=== PATIENT | male | born 1945 | race Caucasian/White ===

== ENCOUNTER 2020-09-14 08:36 | Outpatient (REF) | payer MEDICARE, SELFPAY ==
--- NOTE | 2020-09-14 08:42 | XR_ITS ---
EXAMINATION: XR KNEE, BILATERAL XR KNEE, LEFT CLINICAL INFORMATION: Left knee pain. COMPARISON: 12/29/2019, 09/15/2019, and 07/15/2019. TECHNIQUE: AP standing views of both knees and left lateral knee. FINDINGS: Patient is status post bilateral total knee arthroplasties. On the provided images prosthetic components appear in good position. No acute fracture or dislocation is evident. No evidence of prosthetic hardware loosening. There is a left knee effusion. There are prominent vascular calcifications seen. XR/XR knee LT 2V IMPRESSION: Status post bilateral total knee arthroplasties. Prosthetic components in position. Left knee effusion.
--- NOTE | 2020-09-14 08:42 | XR_ITS ---
EXAMINATION: XR KNEE, BILATERAL XR KNEE, LEFT CLINICAL INFORMATION: Left knee pain. COMPARISON: 12/29/2019, 09/15/2019, and 07/15/2019. TECHNIQUE: AP standing views of both knees and left lateral knee. FINDINGS: Patient is status post bilateral total knee arthroplasties. On the provided images prosthetic components appear in good position. No acute fracture or dislocation is evident. No evidence of prosthetic hardware loosening. There is a left knee effusion. There are prominent vascular calcifications seen. XR/XR knee standing BI IMPRESSION: Status post bilateral total knee arthroplasties. Prosthetic components in position. Left knee effusion.
== END 2020-09-14 08:37 | disposition home or self-care (01) ==
LOC: HO.HOSX 08:36
PROVIDERS: PCP Internal Medicine; Referring Provider Internal Medicine; Visit Provider Orthopaedic Surgery
DX: M25.562 Pain in left knee (principal); M25.561 Pain in right knee; Z96.653 Presence of artificial knee joint, bilateral
CPT/HCPCS: 73560; 73565; 99212

== ENCOUNTER 2021-09-12 07:10 | Outpatient (REF) | payer MEDICARE, SELFPAY ==
--- NOTE | ~2021-09-12 | XR_ITS ---
EXAMINATION: XR KNEE, AP STANDING VIEWS, BILATERAL XR KNEE, LATERAL AND SUNRISE VIEWS, LEFT CLINICAL INFORMATION: Pain. COMPARISON: 09/14/2020 TECHNIQUE: AP standing view of both knees. Lateral and sunrise views of the left knee. FINDINGS: AP standing views of both knees demonstrate the patient to be status post bilateral knee arthroplasty. The femoral and tibial components appear in good position. No evidence of prosthetic component loosening seen. [address] [place] and lateral views of the left knee do not demonstrate evidence of acute fracture or dislocation. No significant effusion is appreciated. Vascular calcifications present. XR/XR knee standing BI IMPRESSION: Status post bilateral total knee arthroplasties without significant abnormality appreciated.
--- NOTE | ~2021-09-12 | XR_ITS ---
EXAMINATION: XR KNEE, AP STANDING VIEWS, BILATERAL XR KNEE, LATERAL AND SUNRISE VIEWS, LEFT CLINICAL INFORMATION: Pain. COMPARISON: 09/14/2020 TECHNIQUE: AP standing view of both knees. Lateral and sunrise views of the left knee. FINDINGS: AP standing views of both knees demonstrate the patient to be status post bilateral knee arthroplasty. The femoral and tibial components appear in good position. No evidence of prosthetic component loosening seen. [place] and lateral views of the left knee do not demonstrate evidence of acute fracture or dislocation. No significant effusion is appreciated. Vascular calcifications present. XR/XR knee LT 3V IMPRESSION: Status post bilateral total knee arthroplasties without significant abnormality appreciated.
== END 2021-09-12 07:11 | disposition home or self-care (01) ==
LOC: HO.HOSX 07:10
PROVIDERS: Visit Provider Physician Assistant
DX: M25.662 Stiffness of left knee, not elsewhere classified (principal); Z96.653 Presence of artificial knee joint, bilateral
CPT/HCPCS: 73562; 73565; 99212

== ENCOUNTER → 2021-09-14 12:27 | Outpatient (BNVA) | payer MEDICARE, SELFPAY | PROVIDERS: PCP Internal Medicine; Visit Provider Orthopaedic Surgery | DX: T84.023A Instability of internal left knee prosthesis, initial encounter (principal) | CPT/HCPCS: 99212 ==

== ENCOUNTER → 2021-10-17 12:29 | Outpatient (BNVA) | payer MEDICARE, SELFPAY | PROVIDERS: PCP Internal Medicine; Visit Provider Orthopaedic Surgery | DX: M65.4 Radial styloid tenosynovitis [de Quervain] (principal) | CPT/HCPCS: 99202; J1100 ==

== ENCOUNTER → 2021-12-12 08:52 | Outpatient (BNVA) | payer MEDICARE, SELFPAY | PROVIDERS: PCP Internal Medicine; Visit Provider Orthopaedic Surgery | DX: M65.4 Radial styloid tenosynovitis [de Quervain] (principal) | CPT/HCPCS: 99212; J1100 ==

== ENCOUNTER → 2022-01-16 10:24 | Outpatient (BNVA) | payer MEDICARE, SELFPAY | PROVIDERS: PCP Internal Medicine; Visit Provider Orthopaedic Surgery | DX: M25.532 Pain in left wrist (principal); M65.4 Radial styloid tenosynovitis [de Quervain]; Z88.6 Allergy status to analgesic agent; Z88.8 Allergy status to other drugs, medicaments and biological substances; Z88.9 Allergy status to unspecified drugs, medicaments and biological substances; Z96.653 Presence of artificial knee joint, bilateral | CPT/HCPCS: 99212 ==

== ENCOUNTER 2022-02-08 06:16 | Day surgery (SDC) | payer MEDICARE, SELFPAY ==
[2022-02-08 06:45] VITALS: BMI 38.0
[2022-02-08 07:00] VITALS: BP 156/69; PULSE 66; RESP 17; TEMP 36.3; O2SAT 96
[2022-02-08 07:24] VITALS: BMI 38.0
--- NOTE | 2022-02-08 08:01 | P.OP_ITS ---
Operative Note Operative Note Date of Service: 02/08/22 Narrative: Operative Note Preop diagnosis: 1. Left DeQuervain's tenosynovitis Postop diagnosis: 1. Left DeQuervain's tenosynovitis Procedure: 1. Left 1st dorsal compartment release Surgeon: Carol Perdomo MD Anesthesia: local block using 1% lidocaine with epinephrine Findings: Thickened 1st dorsal compartment. EBL: Less than 5 mL Tourniquet time: None Specimens: None Complications: None Disposition: Brought to recovery room in stable condition Plan: Follow-up for 7-10 days for wound check and suture removal Indications: The patient is a 76 years old, with left DeQuervain's tenosynovitis that has been unresponsive to nonoperative management. The risks and benefits of operative treatment including but not limited to risk of damage to blood vessels, nerves, tendons, infection, persistent pain, persistent symptoms, recurrence or possible need for additional surgery were discussed with the patient and the patient wishes to proceed with surgery. Procedure: Once consent was obtained a local block was performed in the preop area using a combination of 1% lidocaine with epinephrine. The patient was then brought back to the operating suite and placed on the operative table in supine position. A tourniquet was applied to the proximal aspect of the left upper extremity and the limb was prepped and draped in a standard surgical fashion. Once assured that we had a good block, a 1.5 cm longitudinal incision was made centered over the 1st dorsal compartment as it passed over the radial styloid of the left wrist. The incision was made through the skin to the subcutaneous tissues using a #15 blade. Careful dissection was made down to the level of the 1st dorsal compartment using tenotomy scissors, with care being taken to protect the nearby branches of the superficial radial nerve. Once the 1st dorsal compartment was exposed, A longitudinal incision was made in the 1st dorsal compartment 1st using a #15 blade, then using tenotomy scissors under direct visualization. The 1st dorsal compartment was noted to be thickened. Following our release, we saw smooth gliding abductor pollicis longus and extensor pollicis brevis tendons. Once satisfied with our 1st dorsal compartment release the wound was copiously irrigated with normal saline and hemostasis was obtained with a brief period of local pressure. The subcutaneous layer was closed with some 4-0 Vicryl suture, and the skin edges were reapproximated with some 5.0 nylon suture material. A sterile dressing was applied. The patient appears to have tolerated the procedure well and with no complica tions. All digits were well vascularized at the conclusion of the case.
--- NOTE | 2022-02-08 08:01 | MHC.SHP ---
Pre-Procedural Eval Section A Date of Service: 02/08/22 The patient is an INPATIENT: No Changes since office visit: No Cold of Flu in the past 2 weeks, No New Medical Problems, No Changes in Medication and No Patient answered all questions The History & Physical has been completed within 30 days and I have reviewed it.: Yes Section B Chief Complaint: tenosynovitis Allergies: Allergies Allergy/AdvReac Type Severity Reaction Status Date / Time prednisone [PREDNISONE] Allergy Severe FACIAL Verified 01/16/22 10:36 SWELLING/FLUSHING adhesive tape Allergy Intermediate RASH Verified 01/16/22 10:36 acetaminophen [Percocet] Allergy Unknown Vomiting Verified 01/16/22 10:36 oxycodone [OXYCODONE] AdvReac Intermediate ITCHING Verified 01/16/22 10:36 percocet Allergy Unknown rash Uncoded 01/16/22 10:36 prednisone Allergy Unknown rash Uncoded 01/16/22 10:36 Plan I have reviewed the history and physical and performed a pertinent physical examination on my patient. No changes have occurred unless specified.
[2022-02-08 08:35] VITALS: BP 180/75; PULSE 58; RESP 17; TEMP 36.2; O2SAT 96
== END 2022-02-08 08:43 | disposition home or self-care (01) ==
PROVIDERS: PCP Internal Medicine; Visit Provider Orthopaedic Surgery
PROC: (CPT 25000; principal; 2022-02-08 07:30)
DX: M65.4 Radial styloid tenosynovitis [de Quervain] (principal); M25.532 Pain in left wrist; Z96.653 Presence of artificial knee joint, bilateral; Z98.890 Other specified postprocedural states; Z88.8 Allergy status to other drugs, medicaments and biological substances
CPT/HCPCS: 25000; J0171

== ENCOUNTER → 2022-02-21 13:08 | Outpatient (BNVA) | payer MEDICARE, SELFPAY | PROVIDERS: PCP Internal Medicine; Visit Provider Orthopaedic Surgery | DX: Z09 Encounter for follow-up examination after completed treatment for conditions other than malignant neoplasm (principal); Z87.39 Personal history of other diseases of the musculoskeletal system and connective tissue | CPT/HCPCS: 99212 ==

== ENCOUNTER 2022-09-17 06:06 | Outpatient (REF) | payer MEDICARE, SELFPAY ==
--- NOTE | ~2022-09-17 | XR_ITS ---
EXAMINATION: XR KNEES, STANDING AP XR KNEE, LEFT CLINICAL INFORMATION: Knee pain. COMPARISON: Standing AP knees and left knee radiographs 09/12/2021. TECHNIQUE: Standing AP view of both knees is performed. The left knee is also imaged in lateral and axial patella views. FINDINGS: Right: Prior knee arthroplasty. Hardware intact. No destructive process or osteolysis. No periostitis. There is some minor heterotopic bone again seen medial and lateral sides similar to prior exam. Left: Prior total knee arthroplasty. Hardware intact. No destructive process or osteolysis. No periostitis. Some minor heterotopic bone again noted similar to prior exam. Axial view patella shows no lateralization or tilting. No definite suprapatellar effusion. XR/XR knee LT 2V IMPRESSION: Right: -Prior knee arthroplasty. Hardware intact. No destructive process or osteolysis. Left: -Prior knee arthroplasty. Hardware intact. No destructive process or osteolysis. -No lateralization or tilting patella. -No definite effusion.
--- NOTE | ~2022-09-17 | XR_ITS ---
EXAMINATION: XR KNEES, STANDING AP XR KNEE, LEFT CLINICAL INFORMATION: Knee pain. COMPARISON: Standing AP knees and left knee radiographs 09/12/2021. TECHNIQUE: Standing AP view of both knees is performed. The left knee is also imaged in lateral and axial patella views. FINDINGS: Right: Prior knee arthroplasty. Hardware intact. No destructive process or osteolysis. No periostitis. There is some minor heterotopic bone again seen medial and lateral sides similar to prior exam. Left: Prior total knee arthroplasty. Hardware intact. No destructive process or osteolysis. No periostitis. Some minor heterotopic bone again noted similar to prior exam. Axial view patella shows no lateralization or tilting. No definite suprapatellar effusion. XR/XR knee standing BI IMPRESSION: Right: -Prior knee arthroplasty. Hardware intact. No destructive process or osteolysis. Left: -Prior knee arthroplasty. Hardware intact. No destructive process or osteolysis. -No lateralization or tilting patella. -No definite effusion.
== END 2022-09-17 06:07 | disposition home or self-care (01) ==
LOC: HO.HOSX 06:06
PROVIDERS: Visit Provider Physician Assistant
DX: M25.562 Pain in left knee (principal); M25.561 Pain in right knee; M25.661 Stiffness of right knee, not elsewhere classified; M25.662 Stiffness of left knee, not elsewhere classified; Z96.653 Presence of artificial knee joint, bilateral
CPT/HCPCS: 73560; 73565; 99212

== ENCOUNTER 2023-07-12 09:11 | Outpatient (AMB) | payer MEDICARE, SELFPAY ==
--- NOTE | 2023-07-12 09:31 | A.OFFVIS_ITS ---
Intake Vital Signs 07/12/23 09:37 Height 5 ft 10 in Weight 265 lb BMI 38.0 Intake Visit Reasons: Newprob-Left hip pain Intake Note: Austyn is a 77 year old male who presents today for a evaluation for his left hip pain. Patient reports off and on pain for a months. He states his pain is near his glutes and it radiates up to his lower back. Patient reports when he put his socks on he felt a spider web of pain in his lower back. Allergies prednisone [PREDNISONE] Allergy (Severe, Verified 07/12/23 09:36) FACIAL SWELLING/FLUSHING adhesive tape Allergy (Intermediate, Verified 07/12/23 09:36) RASH acetaminophen [Percocet] Allergy (Unknown, Verified 07/12/23 09:36) Vomiting oxycodone [OXYCODONE] Adverse Reaction (Intermediate, Verified 07/12/23 09:36) ITCHING percocet Allergy (Unknown, Uncoded 02/21/22 13:49) rash prednisone Allergy (Unknown, Uncoded 02/21/22 13:49) rash HPI Newprob-Left hip pain HPI Details 77-year-old male who presents in the office today for an evaluation of left hip pain. The patient reports intermittent pain for a month, since 06/2023. He states his pain is near his glutes and radiates up to the lower back. Patient reports when he was putting his socks on he felt a spiderweb of pain in his lower back. [facility] Surgical History S/p total knee replacement, bilateral Status post carpal tunnel release of both wrists (~2017) Family History Mother No problems noted. Father No problems noted. Social History Patient Tobacco Use Status: Former Tobacco user Current occupational status: retired Current occupation: Right Handed Review of Systems Const All systems reviewed & are unremarkable except as noted in HPI and below Physical Exam Vital Signs: BMI result Body Mass Index 38.0 Const General: cooperative, healthy appearing and no acute distress Resp Effort & Inspection: normal respiratory effort and able to speak in complete sentences Cardio Rate: regular rate Peripheral pulses: Peripheral pulses 2+ throughout GI Palpation (GI): Soft to palpation Skin Lesions: no lesions Rashes: no rashes Extrem Other: Left hip: Normal to inspection. No ecchymosis, erythema, or edema. Full hip ROM in all planes. No tenderness to palpation over the greater trochanteric bursa. 5/5 strength with resisted hip flexion, knee extension, abduction, and abduction. Pain with straight leg raise that radiates from lower back down to his left knee. NVI. Assessment & Plan Assessment & Plan (1) Sciatica of left side: Code(s): M54.32 - Sciatica, left side Plan Mr. Vasquez is a 77-year-old male who presents in the office today for an evaluation of left hip pain. The patient reports intermittent pain for a month, since 06/2023. He states his pain is near his glutes and radiates up to the lower back. Patient reports when he was putting his socks on he felt a spiderweb of pain in his lower back. The patient will be referred to Pain Management for further evaluation and treatment of his lower back pain. Follow up will be PRN, or sooner if needed. X-rays of the left hip which were obtained while in the office today and were reviewed by me, Nallely Lyles PA-C, revealed no evidence of acute fracture or dislocation. Orders: Orders XR hip LT w PEL1V Today M25.559 - Pain in unspecified hip Referrals Pain Management Referral M54.32 - Sciatica, left side Patient Instructions: Scribed for Nallely Lyles PA-C by Mariely Freedman certified medical technician assistant, on 07/12/2023 at 9:19 am, EST. Coding Level of Care Code New Pt Level 4 (24831) Diagnoses Sciatica of left side M54.32
[2023-07-12 09:37] VITALS: BMI 38.0
== END 2023-07-12 10:15 | disposition home or self-care (01) ==
PROVIDERS: PCP Internal Medicine; Visit Provider Physician Assistant
DX: M54.32 Sciatica, left side (principal)
CPT/HCPCS: 99213

== ENCOUNTER 2023-07-12 13:16 | Outpatient (REF) | payer MEDICARE, SELFPAY ==
--- NOTE | ~2023-07-12 | XR_ITS ---
EXAMINATION: XR HIP, LEFT CLINICAL INFORMATION: Pain. COMPARISON: None available. TECHNIQUE: AP and frog-leg lateral views of the left hip are submitted, together with a frontal view of the pelvis. FINDINGS: No fracture. Alignment is anatomic. There is mild heel narrowing of the right acetabular joint space. The left acetabular joint space is well-maintained. The femoral heads are smooth. No acute fracture or dislocation is seen. There are iliofemoral atherosclerotic calcifications. No foreign body is noted. XR/XR hip LT w PEL1V IMPRESSION: There is mild osteoarthritic change of the right hip, and no unusual degenerative change is seen of the left hip. No fracture or dislocation is seen.
== END 2023-07-12 13:17 | disposition home or self-care (01) ==
LOC: HO.HOSX 13:16
PROVIDERS: Visit Provider Physician Assistant
DX: M54.32 Sciatica, left side (principal)
CPT/HCPCS: 73502

== ENCOUNTER 2023-07-25 10:38 | Outpatient (REF) | payer MEDICARE, SELFPAY ==
--- NOTE | ~2023-07-25 | XR_ITS ---
EXAMINATION: XR LUMBOSACRAL SPINE WITH OBLIQUES CLINICAL INFORMATION: Spondylosis without myelopathy or radiculopathy COMPARISON: None available. TECHNIQUE: 7 views of the lumbar spine as above bilateral oblique views as well as flexion and extension views. FINDINGS: Slight rightward curvature of the lumbar spine. Extensive degenerative changes with hypertrophic change in the imaged lower thoracic spine. Extensive atherosclerotic aortoiliac calcifications. AP diameter of distal abdominal aorta of approximately 2.6 cm. Facet arthritis in the mid to lower lumbar spine. Advanced multilevel degenerative changes in the lumbar spine with abundant hypertrophic change and multilevel loss of disc space height. Grade 1 anterolisthesis of L5 on S1 persists on flexion and extension views. Degenerative changes in the bilateral sacroiliac joints. XR/XR lumbar spine 6V w bending IMPRESSION: Severe multilevel degenerative changes in the lumbar spine. AP diameter of distal abdominal aorta of approximately 2.6 cm. Dedicated imaging of the abdominal aorta recommend a for further evaluation.
== END 2023-07-25 10:39 | disposition home or self-care (01) ==
LOC: HO.XRAY 10:38
PROVIDERS: PCP Internal Medicine; Visit Provider Nurse Practitioner Family
DX: M47.817 Spondylosis without myelopathy or radiculopathy, lumbosacral region (principal); M54.50 Low back pain, unspecified; M25.552 Pain in left hip
CPT/HCPCS: 72114

== ENCOUNTER 2023-07-25 10:38 | Outpatient (AMB) | payer MEDICARE, SELFPAY ==
--- NOTE | 2023-07-25 10:42 | MHC.OFFVIS ---
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 Accompanied by: Self / Same As Patient Allergies prednisone [PREDNISONE] Allergy (Severe, Verified 07/25/23 10:45) FACIAL SWELLING/FLUSHING adhesive tape Allergy (Intermediate, Verified 07/25/23 10:45) RASH acetaminophen [Percocet] Allergy (Unknown, Verified 07/25/23 10:45) Vomiting oxycodone [OXYCODONE] Adverse Reaction (Intermediate, Verified 07/25/23 10:45) ITCHING percocet Allergy (Unknown, Uncoded 02/21/22 13:49) rash prednisone Allergy (Unknown, Uncoded 02/21/22 13:49) rash HPI Sciatica, left side HPI Details Patient is a pleasant 77 years old male presents today for initial evaluation of chronic low back pain. Denies any recent trauma, injury or falls. Patient reports axial low back pain and left hip pain wtih prolonged walking. Reports pain increases within 10 minutes of walking but no pain while sitting or standing. Patient is being seen by [facility] [place] for left hip pain. Denies previous spine surgery or injections and is not interested in interventional treatments at this time. Patient denies previous physical therapy for back and core strengthening. He reports taking Aspirin and resting to alleviate his symptoms. Pain affects his daily activities, functioning, sleep, social activities, mood and quality of life. Patient denies previous physical therapy, chiropractic manipulation, massage, aqua therapy, acupuncture, TENS unit or home exercise program. Denies any fever, abdominal or groin pain, dizziness, shortness of breath, bladder or bowel incontinence or saddle anesthesia. Patient rates his pain at 4/10 with walking and 0/10 while sitting 0/10. 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 Father No problems noted. Social History Patient Tobacco Use Status: Former Tobacco user Current occupational status: retired Current occupation: Right Handed Review of Systems Const All systems reviewed & are unremarkable except as noted in HPI and below Physical Exam Vital Signs: Last Vital Signs Pulse 69 07/25/23 10:46 BP 171/72 H 07/25/23 10:46 Pulse Ox 96 07/25/23 10:46 Oxygen Delivery Method Room Air 07/25/23 10:46 BMI result Body Mass Index 38.1 General: Appears afebrile. Alert and oriented. Mood and affect appropriate. Follows and participates in conversation appropriately. Respiratory effort is unlabored. No cough. Able to transition from sit to stand unassisted. Ambulates with bilaterally normal heel strike and toe off. Back/Spine/Pelvis Other: Patient is able to walk and stand on heels and tip toes with mild difficulty on the left, otherwise demonstrating good motor tone. No limping. Can flex forward to 70-75 degrees and extend to 5-10 degrees before experiencing lumbar pain. Demonstrates 5/5 strength of quadriceps bilaterally as well as flexion/dorsiflexion of bilateral feet against resistance. 2+ pedal pulses bilaterally. Seated straight leg rise with dorsiflexion negative bilaterally. +1 patellar and achilles reflexes bilaterally. Facet loading test positive bilaterally. Miguel sign, Alvarado?s, Pelvic compression and Stinchfield tests are negative bilaterally. No groin pain with I/E hip rotations. Cervical Spine: cervical ROM normal and No Cervical spine tenderness Thoracic/Lumbar Spine: thoracic and lumbar spine normal to inspection, No Thoracic/lumbar spine scar(s), Lasegue's sign negative, straight leg raise negative bilaterally, paraspinal muscle tenderness on the left greater than right, No thoracic spinal tenderness and lumbar spinal tenderness at L4 and at L5 Pelvis: no buttock tenderness and no sciatic notch tenderness Sacroiliac joints: bilaterally nontender Results Reviewed Results Reviewed: XR HIP, LEFT 07/12/23 FINDINGS: No fracture. Alignment is anatomic. There is mild heel narrowing of the right acetabular joint space. The left acetabular joint space is well-maintained. The femoral heads are smooth. No acute fracture or dislocation is seen. There are iliofemoral atherosclerotic calcifications. No foreign body is noted. IMPRESSION: There is mild osteoarthritic change of the right hip, and no unusual degenerative change is seen of the left hip. No fracture or dislocation is seen. Assessment & Plan Assessment & Plan (1) Lumbosacral spondylosis: Code(s): M47.817 - Spondylosis without myelopathy or radiculopathy, lumbosacral region (2) Low back pain: Code(s): M54.50 - Low back pain, unspecified (3) Left hip pain: Code(s): M25.552 - Pain in left hip Plan 1. Lumbar spine imaging to assess degree of degenerative changes, any subluxation, listhesis or pars defects. 2. Recommend formal physical therapy for chronic mid to low back pain with focus on lumbar stabilization, modalities, stretching, strengthening and progressing to a home program. Script provided today. Follow-up in 2-3 months to see response to physical therapy, if no response to physical therapy will consider further interventional strategy. All questions and concerns have been answered and patient agreed with the plan. Follow up for xray results and sooner as needed. Orders: Orders XR lumbar spine 6V w bending 07/25/23 M47.817 - Spondylosis without myelopathy or radiculopathy, lumbosacral region, M54.50 - Low back pain, unspecified PT Evaluation and Treatment 07/25/23 M47.817 - Spondylosis without myelopathy or radiculopathy, lumbosacral region, M54.50 - Low back pain, unspecified Coding Level of Care Code New Pt Level 4 (65963) Diagnoses Lumbosacral spondylosis M47.817 Low back pain M54.50 Left hip pain M25.552
[2023-07-25 10:46] VITALS: BP 171/72; PULSE 69; O2SAT 96; BMI 38.1
== END 2023-07-25 11:08 | disposition home or self-care (01) ==
PROVIDERS: PCP Internal Medicine; Visit Provider Nurse Practitioner Family
DX: M47.817 Spondylosis without myelopathy or radiculopathy, lumbosacral region (principal); M54.50 Low back pain, unspecified; M25.552 Pain in left hip
CPT/HCPCS: 99203

== ENCOUNTER 2023-08-15 08:12 | Outpatient (AMB) | payer MEDICARE, SELFPAY ==
--- NOTE | 2023-08-15 08:25 | A.OFFVIS_ITS ---
Intake Vital Signs 08/15/23 08:30 Height 5 ft 10 in Weight 265 lb BMI 38.0 BP 143/66 H Blood Pressure Location Rt brachial Position Sitting Pulse 66 Pulse Source Pulse Oximeter Pulse Oximetry (%) 98 Oxygen Delivery Method Room Air Intake Visit Reasons: xray results/ LVM. Allergies prednisone [PREDNISONE] Allergy (Severe, Verified 08/15/23 08:31) FACIAL SWELLING/FLUSHING adhesive tape Allergy (Intermediate, Verified 08/15/23 08:31) RASH acetaminophen [Percocet] Allergy (Unknown, Verified 08/15/23 08:31) Vomiting oxycodone [OXYCODONE] Adverse Reaction (Intermediate, Verified 08/15/23 08:31) ITCHING percocet Allergy (Unknown, Uncoded 02/21/22 13:49) rash prednisone Allergy (Unknown, Uncoded 02/21/22 13:49) rash HPI HPI Comments History of Present Illness Details Patient presents today to review recent lumbar spine xray results. Denies any recent cough, cold, infection, fever or other significant changes in medical history since last office visit. Patient continues to endorse low back pain across his lower back worsening with walking, prolonged standing while doing dishes or cooking his meals or bending. Denies any pain while sitting therefore rates his pain 0/10 now. Patient reports his pain completely goes away as soon as he sits down. Patient also reports to temporary relieve his back pain after walking he has to lean forward. He is interested to undergo therapeutic back injections for his spinal stenosis related pain as past back injections were effective for his symptoms. Lumbar spine xray results are noted below and significant for Grade 1 anterolisthesis of L5 on S1 persists on flexion and extension, severe multilevel degenerative changes in the lumbar spine, and degenerative changes in the bilateral sacroiliac joints. Lumbar spine xray also showed AP diameter of distal abdominal aorta of approximately 2.6 cm. A copy of xray results was faxed to PCP office today to further evaluate regarding abdominal aorta. Patient also continues to reports significant morning stiffness and pain in his both knees with history of bilateral TKAs and difficulty bending his knees. He reports daily swimming Saturday through Saturday and notes significant left leg discomfort when coming out from swimming pool. PRIOR: Patient is a pleasant 77 years old male presents today for initial evaluation of chronic low back pain. Denies any recent trauma, injury or falls. Patient reports axial low back pain and left hip pain wtih prolonged walking. Reports pain increases within 10 minutes of walking but no pain while sitting or standing. Patient is being seen by [facility] for left hip pain. Denies previous spine surgery or injections and is not interested in interventional treatments at this time. Patient denies previous physical therapy for back and core strengthening. He reports taking Aspirin and resting to alleviate his symptoms. Pain affects his daily activities, functioning, sleep, social activities, mood and quality of life. Patient denies previous physical therapy, chiropractic manipulation, massage, aqua therapy, acupuncture, TENS unit or home exercise program. Denies any fever, abdominal or groin pain, dizziness, shortness of breath, bladder or bowel incontinence or saddle anesthesia. Patient rates his pain at 4/10 with walking and 0/10 while sitting 0/10. 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 Father No problems noted. Social History Patient Tobacco Use Status: Former Tobacco user Current occupational status: retired Current occupation: Right Handed Review of Systems Const All systems reviewed & are unremarkable except as noted in HPI and below Physical Exam Vital Signs: Last Vital Signs Pulse 66 08/15/23 08:30 BP 143/66 H 08/15/23 08:30 Pulse Ox 98 08/15/23 08:30 Oxygen Delivery Method Room Air 10/05/23 08:30 BMI result Body Mass Index 38.0 General: Appears afebrile. Alert and oriented. Mood and affect appropriate. Follows and participates in conversation appropriately. Respiratory effort is unlabored. No cough. Able to transition from sit to stand unassisted. Ambulates with bilaterally normal heel strike and toe off but feels unsteady on the left. Back/Spine/Pelvis Other: Lumbar extension reproduces mild pain and moderate pain with lumbar flexion. Mildly antalgic gait with mild limping, favoring right side. Can flex forward to 70-75 degrees and extend to 5-10 degrees before experiencing lumbar pain. Demonstrates 5/5 strength of quadriceps bilaterally as well as flexion/dorsiflexion of bilateral feet against resistance. 2+ pedal pulses bila terally. Seated straight leg rise with dorsiflexion positive on the left. +1 patellar and achilles reflexes bilaterally. Facet loading test positive bilaterally. Miguel sign +, limited Alvarado?s and Stinchfield tests reproduce left lateral hip and bilateral low back pain. No groin pain with I/E hip rotations. Valsalva maneuver is negative. Cervical Spine: cervical ROM normal and No Cervical spine tenderness Thoracic/Lumbar Spine: thoracic and lumbar spine normal to inspection, No Thoracic/lumbar spine scar(s), paraspinal muscle tenderness on the left greater than right, No thoracic spinal tenderness and lumbar spinal tenderness at L4 and at L5 Pelvis: no buttock tenderness Sacroiliac joints: bilaterally tender to palpation Results Reviewed Results Reviewed: XR HIP, LEFT 07/12/23 FINDINGS: No fracture. Alignment is anatomic. There is mild heel narrowing of the right acetabular joint space. The left acetabular joint space is well-maintained. The femoral heads are smooth. No acute fracture or dislocation is seen. There are iliofemoral atherosclerotic calcifications. No foreign body is noted. IMPRESSION: There is mild osteoarthritic change of the right hip, and no unusual degenerative change is seen of the left hip. No fracture or dislocation is seen. XR LUMBOSACRAL SPINE WITH OBLIQUES 07/25/23 CLINICAL INFORMATION: Spondylosis without myelopathy or radiculopathy COMPARISON: None available. FINDINGS: Slight rightward curvature of the lumbar spine. Extensive degenerative changes with hypertrophic change in the imaged lower thoracic spine. Extensive atherosclerotic aortoiliac calcifications. AP diameter of distal abdominal aorta of approximately 2.6 cm. Facet arthritis in the mid to lower lumbar spine. Advanced multilevel degenerative changes in the lumbar spine with abundant hypertrophic change and multilevel loss of disc space height. Grade 1 anterolisthesis of L5 on S1 persists on flexion and extension views. Degenerative changes in the bilateral sacroiliac joints. IMPRESSION: Severe multilevel degenerative changes in the lumbar spine. AP diameter of distal abdominal aorta of approximately 2.6 cm. Dedicated imaging of the abdominal aorta recommend a for further evaluation. Assessment & Plan Assessment & Plan (1) Spinal stenosis of lumbar region: Code(s): M48.061 - Spinal stenosis, lumbar region without neurogenic claudication (2) Lumbosacral spondylosis: Code(s): M47.817 - Spondylosis without myelopathy or radiculopathy, lumbosacral region (3) Spondylolisthesis, lumbar region: Code(s): M43.16 - Spondylolisthesis, lumbar region (4) Lumbar degenerative disc disease: Code(s): M51.36 - Other intervertebral disc degeneration, lumbar region Plan MRI of the lumbar spine to assess for neural integrity and compression and follow up on recent lumbar spine xray findings. For axial low back and SIJ related pain, discussed diagnostic lumbar medial branch blocks. Patient prefers to wait until MRI is complete and manage his discogenic and radicular pain first to increase his walking capacity and standing tolerance to improve his ADLs. Patient will return to the clinic to discuss results of the MRI findings when it is done and consider interventional therapy as indicated. Copy of lumbar spine xray was sent to patient's PCP office. All questions were answered and the patient is in agreement of plan. Follow-up for MRI results and sooner as needed. Orders: Orders MR lumbar spine wo con Today M43.16 - Spondylolisthesis, lumbar region, M47.817 - Spondylosis without myelopathy or radiculopathy, lumbosacral region, M48.061 - Spinal stenosis, lumbar region without neurogenic claudication Coding Level of Care Code Est Pt Level 4 (68130) Diagnoses Spinal stenosis of lumbar region M48.061 Lumbosacral spondylosis M47.817 Spondylolisthesis, lumbar region M43.16 Lumbar degenerative disc disease M51.36
[2023-08-15 08:30] VITALS: BP 143/66; PULSE 66; O2SAT 98; BMI 38.0
== END 2023-08-15 08:54 | disposition home or self-care (01) ==
PROVIDERS: PCP Internal Medicine; Visit Provider Nurse Practitioner Family
DX: M48.061 Spinal stenosis, lumbar region without neurogenic claudication (principal); M47.817 Spondylosis without myelopathy or radiculopathy, lumbosacral region; M43.16 Spondylolisthesis, lumbar region; M51.36 Other intervertebral disc degeneration, lumbar region
CPT/HCPCS: 99213

== ENCOUNTER → 2023-08-15 08:12 | Outpatient (BNVA) | payer MEDICARE, SELFPAY | PROVIDERS: PCP Internal Medicine; Visit Provider Nurse Practitioner Family | DX: M48.061 Spinal stenosis, lumbar region without neurogenic claudication (principal); M47.817 Spondylosis without myelopathy or radiculopathy, lumbosacral region; M43.16 Spondylolisthesis, lumbar region; M51.36 Other intervertebral disc degeneration, lumbar region | CPT/HCPCS: 99212 ==

== ENCOUNTER 2023-09-17 14:01 | Outpatient (REF) | payer MEDICARE, SELFPAY ==
--- NOTE | ~2023-09-17 | MR_ITS ---
EXAMINATION: MR LUMBAR SPINE WITHOUT CONTRAST CLINICAL INFORMATION: Spinal stenosis, lumbar region without neurogenic claudication. COMPARISON: Lumbar radiographs on 07/25/2023 TECHNIQUE: MRI of the lumbar spine was obtained using routine sequences without contrast. FINDINGS: Grade 1 anterolisthesis at L4-L5 and to a lesser extent L5-S1. Mild retrolisthesis at T12-L1, L1-L2, L2-L3, and to a lesser extent L3-L4. No acute bone marrow signal. The vertebral body heights are preserved. Multilevel disc desiccation and disc height loss. Multilevel endplate osteophytosis. The visualized spinal cord is normal in caliber. No abnormal cord signal. The conus medullaris terminates at L1. T12-L1: Small disc bulge and prominent dorsal epidural fat. No significant spinal canal stenosis. Mild right greater than left neural foraminal narrowing. L1-L2: Diffuse disc bulge extending into the right neural foramen. Prominent dorsal epidural fat and bilateral facet arthrosis. Mild spinal canal stenosis. Mild to moderate left and mild right neural foraminal narrowing. L2-L3: Diffuse disc bulge, prominent dorsal epidural fat, ligamentum flavum hypertrophy, and bilateral facet arthrosis. Mild to moderate spinal canal stenosis. Moderate right and severe left neural foraminal narrowing with the disc abutting the exiting L2 nerve roots bilaterally. L3-L4: Diffuse disc bulge with superimposed annular fissure. Prominent dorsal epidural fat, ligamentum flavum hypertrophy, and bilateral facet arthrosis. Moderate spinal canal stenosis. Severe left and moderate right neural foraminal narrowing with mass effect on the left exiting L3 nerve roots. The disc also abuts the exiting nerve roots on the right. L4-L5: Diffuse disc bulge, ligamentum flavum hypertrophy, and bilateral facet arthrosis. Mild spinal canal stenosis. Severe bilateral neural foraminal narrowing with impingement of the exiting L4 nerve roots bilaterally. L5-S1: Diffuse disc bulge with superimposed annular fissure. Bilateral facet arthrosis. No significant spinal canal stenosis. Moderate to severe right and mild to moderate left neural foraminal narrowing with mass effect on the right exiting L5 nerve roots. There is mild diffuse atrophy of the parasacral musculature. MR/MR lumbar spine wo con IMPRESSION: Multilevel lumbar spondylosis and epidural lipomatosis results in moderate spinal canal stenosis at L3-L4 and mild to moderate canal stenosis at L2-L3. Multilevel neural foraminal narrowing, worst and severe on the left at L2-L3, L3-L4 and bilaterally at L4-L5 and on the right at L5-S1 with mass effect on exiting nerve roots at these levels.
== END 2023-09-17 14:02 | disposition home or self-care (01) ==
LOC: HO.MRI 14:01
PROVIDERS: PCP Internal Medicine; Visit Provider Nurse Practitioner Family
DX: M48.061 Spinal stenosis, lumbar region without neurogenic claudication (principal); M47.816 Spondylosis without myelopathy or radiculopathy, lumbar region; M54.16 Radiculopathy, lumbar region
CPT/HCPCS: 72148

== ENCOUNTER 2023-10-08 08:59 | Outpatient (AMB) | payer MEDICARE, SELFPAY ==
--- NOTE | 2023-10-08 09:00 | A.OFFVIS_ITS ---
Intake Vital Signs 10/08/23 09:06 10/08/23 09:06 Height 5 ft 10 in Weight 270 lb BMI 38.7 BP 207/68 H 189/80 H Blood Pressure Location Rt brachial Lt brachial Position Sitting Sitting Pulse 68 59 Pulse Source Pulse Oximeter Pulse Oximeter Pulse Oximetry (%) 100 Oxygen Delivery Method Room Air Intake Visit Reasons: MRI Results/confirmed Allergies prednisone [PREDNISONE] Allergy (Severe, Verified 10/08/23 09:07) FACIAL SWELLING/FLUSHING adhesive tape Allergy (Intermediate, Verified 10/08/23 09:07) RASH acetaminophen [Percocet] Allergy (Unknown, Verified 10/08/23 09:07) Vomiting oxycodone [OXYCODONE] Adverse Reaction (Intermediate, Verified 10/08/23 09:07) ITCHING percocet Allergy (Unknown, Uncoded 02/21/22 13:49) rash prednisone Allergy (Unknown, Uncoded 02/21/22 13:49) rash HPI HPI Comments History of Present Illness Details Patient presents today to review recent lumbar spine MRI results. Patient continues to endorse low back pain across his lower back worsening with walking, prolonged standing while doing dishes or cooking his meals or bending. He continues daily swimming Saturday through Saturday despite the pain but states it helps to improve his multiple joint pain, especially in his knee and hip areas. Denies any recent cough, cold, infection, fever or other significant changes in medical history since last office visit. PRIOR: Patient is a pleasant 77 years old male presents today for initial evaluation of chronic low back pain. Denies any recent trauma, injury or falls. Patient reports axial low back pain and left hip pain wtih prolonged walking. Reports pain increases within 10 minutes of walking but no pain while sitting or standing. Patient is being seen by [facility] for left hip pain. Denies previous spine surgery or injections and is not interested in interventional treatments at this time. Patient denies previous physical therapy for back and core strengthening. He reports taking Aspirin and resting to alleviate his symptoms. Pain affects his daily activities, functioning, sleep, social activities, mood and quality of life. Patient denies previous physical therapy, chiropractic manipulation, massage, aqua therapy, acupuncture, TENS unit or home exercise program. Denies any fever, abdominal or groin pain, dizziness, shortness of breath, bladder or bowel incontinence or saddle anesthesia. Patient rates his pain at 4/10 with walking and 0/10 while sitting 0/10. 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 Father No problems noted. Social History Patient Tobacco Use Status: Former Tobacco user Current occupational status: retired Current occupation: Right Handed Review of Systems Const All systems reviewed & are unremarkable except as noted in HPI and below Physical Exam Vital Signs: Last Vital Signs Pulse 59 10/08/23 09:06 BP 189/80 H 10/08/23 09:06 Pulse Ox 100 10/08/23 09:06 Oxygen Delivery Method Room Air 10/08/23 09:06 BMI result Body Mass Index 38.7 General: Appears afebrile. Alert and oriented. Mood and affect appropriate. Follows and participates in conversation appropriately. Respiratory effort is unlabored. No cough. Able to transition from sit to stand unassisted. Ambulates with bilaterally normal heel strike and toe off but feels unsteady on the left. Back/Spine/Pelvis Cervical Spine: cervical ROM normal and No Cervical spine tenderness Thoracic/Lumbar Spine: thoracic and lumbar spine normal to inspection, No Thoracic/lumbar spine scar(s), Lasegue's sign positive (left>right) bilateral and localized, paraspinal muscle tenderness on the left greater than right, No thoracic spinal tenderness, lumbar spinal tenderness at L4 and at L5 and straight leg raise positive bilateral at 40 degrees Pelvis: buttock tenderness on the left Sacroiliac joints: bilaterally tender to palpation Results Reviewed Results Reviewed: MR LUMBAR SPINE WITHOUT CONTRAST 09/17/23 CLINICAL INFORMATION: Spinal stenosis, lumbar region without neurogenic claudication. COMPARISON: Lumbar radiographs on 07/25/2023 TECHNIQUE: MRI of the lumbar spine was obtained using routine sequences without contrast. FINDINGS: Grade 1 anterolisthesis at L4-L5 and to a lesser extent L5-S1. Mild retrolisthesis at T12-L1, L1-L2, L2-L3, and to a lesser extent L3-L4. No acute bone marrow signal. The vertebral body heights are preserved. Multilevel disc desiccation and disc height loss. Multilevel endplate osteophytosis. The visualized spinal cord is normal in caliber. No abnormal cord signal. The conus medullaris terminates at L1. T12-L1: Small disc bulge and prominent dorsal epidural fat. No significant spinal canal stenosis. Mild right greater than left neural foraminal narrowing. L1-L2: Diffuse disc bulge extending into the right neural foramen. Prominent dorsal epidural fat and bilateral facet arthrosis. Mild spinal canal stenosis. Mild to moderate left and mild right neural foraminal narrowing. L2-L3: Diffuse disc bulge, prominent dorsal epidural fat, ligamentum flavum hypertrophy, and bilateral facet arthrosis. Mild to moderate spinal canal stenosis. Moderate right and severe left neural foraminal narrowing with the disc abutting the exiting L2 nerve roots bilaterally. L3-L4: Diffuse disc bulge with superimposed annular fissure. Prominent dorsal epidural fat, ligamentum flavum hypertrophy, and bilateral facet arthrosis. Moderate spinal canal stenosis. Severe left and moderate right neural foraminal narrowing with mass effect on the left exiting L3 nerve roots. The disc also abuts the exiting nerve roots on the right. L4-L5: Diffuse disc bulge, ligamentum flavum hypertrophy, and bilateral facet arthrosis. Mild spinal canal stenosis. Severe bilateral neural foraminal narrowing with impingement of the exiting L4 nerve roots bilaterally. L5-S1: Diffuse disc bulge with superimposed annular fissure. Bilateral facet arthrosis. No significant spinal canal stenosis. Moderate to severe right and mild to moderate left neural foraminal narrowing with mass effect on the right exiting L5 nerve roots. There is mild diffuse atrophy of the parasacral musculature. IMPRESSION: Multilevel lumbar spondylosis and epidural lipomatosis results in moderate spinal canal stenosis at L3-L4 and mild to moderate canal stenosis at L2-L3. Multilevel neural foraminal narrowing, worst and severe on the left at L2-L3, L3-L4 and bilaterally at L4-L5 and on the right at L5-S1 with mass effect on exiting nerve roots at these levels. XR HIP, LEFT 07/12/23 FINDINGS: No fracture. Alignment is anatomic. There is mild heel narrowing of the right acetabular joint space. The left acetabular joint space is well-maintained. The femoral heads are smooth. No acute fracture or dislocation is seen. There are iliofemoral atherosclerotic calcifications. No foreign body is noted. IMPRESSION: There is mild osteoarthritic change of the right hip, and no unusual degenerative change is seen of the left hip. No fracture or dislocation is seen. XR LUMBOSACRAL SPINE WITH OBLIQUES 07/25/23 CLINICAL INFORMATION: Spondylosis without myelopathy or radiculopathy COMPARISON: None available. FINDINGS: Slight rightward curvature of the lumbar spine. Extensive degenerative changes with hypertrophic change in the imaged lower thoracic spine. Extensive atherosclerotic aortoiliac calcifications. AP diameter of distal abdominal aorta of approximately 2.6 cm. Facet arthritis in the mid to lower lumbar spine. Advanced multilevel degenerative changes in the lumbar spine with abundant hypertrophic change and multilevel loss of disc space height. Grade 1 anterolisthesis of L5 on S1 persists on flexion and extension views. Degenerative changes in the bilateral sacroiliac joints. IMPRESSION: Severe multilevel degenerative changes in the lumbar spine. AP diameter of distal abdominal aorta of approximately 2.6 cm. Dedicated imaging of the abdominal aorta recommend a for further evaluation. Assessment & Plan Assessment & Plan (1) Spinal stenosis of lumbar region: Code(s): M48.061 - Spinal stenosis, lumbar region without neurogenic claudication (2) Lumbosacral spondylosis: Code(s): M47.817 - Spondylosis without myelopathy or radiculopathy, lumbosacral region (3) Spondylolisthesis, lumbar region: Code(s): M43.16 - Spondylolisthesis, lumbar region (4) Lumbar degenerative disc disease: Code(s): M51.36 - Other intervertebral disc degeneration, lumbar region (5) Vertebrogenic low back pain: Code(s): M54.51 - Vertebrogenic low back pain Plan Neurosurgery referral for spinal stenosis related pain and recent MRI findings. Discussed interventional treatments for axial and vertebrogenic low back pain. Informational pamphlets provided. All questions were answered and the patient is in agreement of plan. Follow-up after Neurosurgeon evaluation and sooner as needed. Orders: Referrals Neurosurgery Referral M48.061 - Spinal stenosis, lumbar region without neurogenic claudication Coding Level of Care Code Est Pt Level 4 (83412) Diagnoses Spinal stenosis of lumbar region M48.061 Lumbosacral spondylosis M47.817 Spondylolisthesis, lumbar region M43.16 Lumbar degenerative disc disease M51.36 Vertebrogenic low back pain M54.51
[2023-10-08 09:06] VITALS: BP 189/80; BP 207/68; PULSE 59; PULSE 68; O2SAT 100; BMI 38.7
== END 2023-10-08 09:38 | disposition home or self-care (01) ==
PROVIDERS: PCP Internal Medicine; Visit Provider Nurse Practitioner Family
DX: M48.061 Spinal stenosis, lumbar region without neurogenic claudication (principal); M47.817 Spondylosis without myelopathy or radiculopathy, lumbosacral region; M43.16 Spondylolisthesis, lumbar region; M51.36 Other intervertebral disc degeneration, lumbar region; M54.51 Vertebrogenic low back pain
CPT/HCPCS: 99214

== ENCOUNTER → 2023-10-08 08:59 | Outpatient (BNVA) | payer MEDICARE, SELFPAY | PROVIDERS: PCP Internal Medicine; Visit Provider Nurse Practitioner Family | DX: M48.061 Spinal stenosis, lumbar region without neurogenic claudication (principal); M47.817 Spondylosis without myelopathy or radiculopathy, lumbosacral region; M43.16 Spondylolisthesis, lumbar region; M51.36 Other intervertebral disc degeneration, lumbar region; M54.51 Vertebrogenic low back pain | CPT/HCPCS: 99212 ==

== ENCOUNTER 2023-11-08 09:11 | Outpatient (AMB) | payer MEDICARE, SELFPAY ==
--- NOTE | 2023-11-08 09:41 | A.SPINEOV_ITS ---
Intake Intake Visit Reasons: Low back pain Intake Note: Mr. Vasquez is here today c/o low back pain. MRI done @ [facility] [place]. 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 Allergies prednisone [PREDNISONE] Allergy (Severe, Verified 10/08/23 09:07) FACIAL SWELLING/FLUSHING adhesive tape Allergy (Intermediate, Verified 10/08/23 09:07) RASH acetaminophen [Percocet] Allergy (Unknown, Verified 10/08/23 09:07) Vomiting oxycodone [OXYCODONE] Adverse Reaction (Intermediate, Verified 10/08/23 09:07) ITCHING percocet Allergy (Unknown, Uncoded 02/21/22 13:49) rash prednisone Allergy (Unknown, Uncoded 02/21/22 13:49) rash Assessment & Plan Assessment & Plan (1) Lumbar degenerative disc disease: Code(s): M51.36 - Other intervertebral disc degeneration, lumbar region (2) Spondylolisthesis, lumbar region: Code(s): M43.16 - Spondylolisthesis, lumbar region Plan Dear Mercedes Thank you for referring Mr. Vasquez to our office today. He is a 78-year-old gentleman who has had chronic low back pain for 13 years. It got significantly worse about 5 her 6 months ago. It is aggravated with standing and walking and goes away when he sits down. He does not have any radicular pain it is strictly back pain in the middle of his low back. He can walk for about 10 or 15 minutes with no issues but after that he begins to get the back pain. If uses a shopping cart in the store he is okay. He swims at the [facility] almost every day. He has no issues doing that, but by the time he takes showering buttock to his car he starts have the back discomfort. He is here today to see us with an MRI showing multiple levels of spondylosis and arthritis of his lumbar spine. He previously underwent some kind of injection at [facility] with good success but can not recall exactly what injection was done. That was probably 7 or 8 years ago. He has not had any recent physical therapy or cortisone injections. 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 PMH: History of high cholesterol, BPH, hypertension, knee replacement on both sides, left ear skin cancer revision, carpal tunnel syndrome., fatty liver Social hx: He does not smoke, he does drink daily at least a six-pack, but no marijuana Medications: Amlodipine, simvastatin, lisinopril, Flomax, baby aspirin Allergies: Percocet, prednisone Physical exam: Morbidly obese no acute distress he is able to stand up slowly out of a chair due to knee pain in the right knee, he has an intact strength and reflex exam in the lower extremities. Imaging review: Lumbar MRI done at [place] shows diffuse arthritic changes throughout the whole lumbar spine with discogenic disease at basically every level of the lumbar spine. There is a spondylolisthesis at L4-5. There are varying degrees of facet arthropathy throughout his lumbar spine as well. He has a standing flexion-extension x-ray which does show some slight increase in the spondylolisthesis in the vertical position compared to the recumbent MRI, but there is no overt instability with flexion or extension. Impression: [age]-year-old gentleman presenting with diffuse back pain with standing and walking which goes away when he sits. To this point he has had no dedicated conservative treatment. He has diffuse arthritic changes throughout his whole lumbar spine with a grade 1 spondylolisthesis at L4-5. It does appear to get slightly worse in a vertical position. I think that this could be part of the source of his pain but is unlikely to be the source of all of his back pain given the diffuse arthritic changes on his MRI. At this point he is not really interested in considering surgery, as his quality of life is not significantly impacted by the pain. He is still able to do many of the things he wishes to do. He is interested more in the cortisone injections because of the previous excellent response he had when they were done at [facility]. I told him that I would send you a note recommending that he follow up with your office. I also encouraged him to start with the physical therapy that you ordered for him a number of months ago. We should see him back in about 6 months and re-evaluate where things are. Thank you for allowing us to care for your patient. The total time spent with this visit with this patient was 45 minutes reviewing history, physical exam, lumbar imaging review, and implementation of treatment plan or further diagnostic testing Shaun Ribeiro MD,PhD [facility] Coding Level of Care Code New Pt Level 4 (61349) Diagnoses Lumbar degenerative disc disease M51.36 Spondylolisthesis, lumbar region M43.16
== END 2023-11-08 10:40 | disposition home or self-care (01) ==
PROVIDERS: PCP Internal Medicine; Referring Provider Nurse Practitioner Family; Visit Provider Physician Assistant
DX: M51.36 Other intervertebral disc degeneration, lumbar region (principal); M43.16 Spondylolisthesis, lumbar region
CPT/HCPCS: 99204

== ENCOUNTER → 2023-11-08 09:11 | Outpatient (BNVA) | payer MEDICARE, SELFPAY | PROVIDERS: PCP Internal Medicine; Visit Provider Physician Assistant | DX: M51.36 Other intervertebral disc degeneration, lumbar region (principal); M43.16 Spondylolisthesis, lumbar region | CPT/HCPCS: 99202 ==

== ENCOUNTER 2023-11-21 09:12 | Outpatient (AMB) | payer MEDICARE, SELFPAY ==
--- NOTE | 2023-11-21 09:18 | MHC.OFFVIS ---
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 Accompanied by: Self / Same As Patient Allergies prednisone [PREDNISONE] Allergy (Severe, Verified 11/21/23 09:23) FACIAL SWELLING/FLUSHING adhesive tape Allergy (Intermediate, Verified 11/21/23 09:23) RASH acetaminophen [Percocet] Allergy (Unknown, Verified 11/21/23 09:23) Vomiting oxycodone [OXYCODONE] Adverse Reaction (Intermediate, Verified 11/21/23 09:23) ITCHING percocet Allergy (Unknown, Uncoded 02/21/22 13:49) rash prednisone Allergy (Unknown, Uncoded 02/21/22 13:49) rash HPI HPI Comments History of Present Illness Details Patient presents today after Neurosurgical evaluation last month at [facility]. Patient reports surgical intervention would provide him 50-50% chance therefore he declined back surgery. Patient reports axial low back pain that starts after walking for 10 min or prolonged standing. Patient denies radicular pain or pain with bending at this time.He also reports his left hip pain has been better. He rates pain 0-3/10 while sitting and 5-7/10 with walking or prolonged standing. He continues to regularly attend swimming sessions at [facility] and this partially alleviates his knee and back pain. Patient is interested to undergo diagnostic lumbar medial branch blocks for potential therapeutic injections or RFA procedure. Denies any recent cough, cold, infection, fever or other significant changes in medical history since last office visit. PRIOR: Patient is a pleasant 77 years old male presents today for initial evaluation of chronic low back pain. Denies any recent trauma, injury or falls. Patient reports axial low back pain and left hip pain wtih prolonged walking. Reports pain increases within 10 minutes of walking but no pain while sitting or standing. Patient is being seen by [facility] for left hip pain. Denies previous spine surgery or injections and is not interested in interventional treatments at this time. Patient denies previous physical therapy for back and core strengthening. He reports taking Aspirin and resting to alleviate his symptoms. Pain affects his daily activities, functioning, sleep, social activities, mood and quality of life. Patient denies previous physical therapy, chiropractic manipulation, massage, aqua therapy, acupuncture, TENS unit or home exercise program. Denies any fever, abdominal or groin pain, dizziness, shortness of breath, bladder or bowel incontinence or saddle anesthesia. Patient rates his pain at 4/10 with walking and 0/10 while sitting 0/10. Location Left hip radiates to lower back Duration Chronic low back pain Characteristics of symptom or complaint Aching, dull, sharp Aggravating or associated factors Walking >10 min Relieving factors Resting, sitting, Aspirin Treatment Back injections for spinal stenosis > 5 years ago [facility] Medical History Spinal stenosis of lumbar region Sciatica of left side History of revision of total replacement of left knee joint Knee joint stiffness, bilateral De Quervain's tenosynovitis, left Instability of internal left knee prosthesis History of revision of total replacement of right knee joint Surgical History Status post carpal tunnel release of both wrists (~2016) S/p total knee replacement, bilateral Family History Mother No problems noted. Father No problems noted. Social History Patient Tobacco Use Status: Former Tobacco user Current occupational status: retired Current occupation: Right Handed Review of Systems Const All systems reviewed & are unremarkable except as noted in HPI and below Physical Exam General: Appears afebrile. Alert and oriented. Mood and affect appropriate. Follows and participates in conversation appropriately. Respiratory effort is unlabored. No cough. Able to transition from sit to stand unassisted. Ambulates with bilaterally normal heel strike and toe off but feels unsteady on the left. Back/Spine/Pelvis Cervical Spine: cervical ROM normal and No Cervical spine tenderness Thoracic/Lumbar Spine: thoracic and lumbar spine normal to inspection, No Thoracic/lumbar spine scar(s), Lasegue's sign positive (left>right) bilateral and diffuse, paraspinal muscle tenderness on the left greater than right, thoraco-lumbar ROM limited, No thoracic spinal tenderness, lumbar spinal tenderness at L4 and at L5 and straight leg raise positive bilateral at 40 degrees Pelvis: buttock tenderness on the left Sacroiliac joints: bilaterally (+Alvarado's) tender to palpation Psych Appearance: grossly normal and well kempt Mental Status: mental status grossly normal Speech and movement: Normal speech and movement present Affect: normal affect Attitude: cooperative Thought process: Normal thought process present Thought content: Normal thought content present Insight: Good insight present (Psych) Judgement: Good judgement present (Psych) Results Reviewed Results Reviewed: MR LUMBAR SPINE WITHOUT CONTRAST 09/17/23 CLINICAL INFORMATION: Spinal stenosis, lumbar region without neurogenic claudication. COMPARISON: Lumbar radiographs on 07/25/2023 TECHNIQUE: MRI of the lumbar spine was obtained using routine sequences without contrast. FINDINGS: Grade 1 anterolisthesis at L4-L5 and to a lesser extent L5-S1. Mild retrolisthesis at T12-L1, L1-L2, L2-L3, and to a lesser extent L3-L4. No acute bone marrow signal. The vertebral body heights are preserved. Multilevel disc desiccation and disc height loss. Multilevel endplate osteophytosis. The visualized spinal cord is normal in caliber. No abnormal cord signal. The conus medullaris terminates at L1. T12-L1: Small disc bulge and prominent dorsal epidural fat. No significant spinal canal stenosis. Mild right greater than left neural foraminal narrowing. L1-L2: Diffuse disc bulge extending into the right neural foramen. Prominent dorsal epidural fat and bilateral facet arthrosis. Mild spinal canal stenosis. Mild to moderate left and mild right neural foraminal narrowing. L2-L3: Diffuse disc bulge, prominent dorsal epidural fat, ligamentum flavum hypertrophy, and bilateral facet arthrosis. Mild to moderate spinal canal stenosis. Moderate right and severe left neural foraminal narrowing with the disc abutting the exiting L2 nerve roots bilaterally. L3-L4: Diffuse disc bulge with superimposed annular fissure. Prominent dorsal epidural fat, ligamentum flavum hypertrophy, and bilateral facet arthrosis. Moderate spinal canal stenosis. Severe left and moderate right neural foraminal narrowing with mass effect on the left exiting L3 nerve roots. The disc also abuts the exiting nerve roots on the right. L4-L5: Diffuse disc bulge, ligamentum flavum hypertrophy, and bilateral facet arthrosis. Mild spinal canal stenosis. Severe bilateral neural foraminal narrowing with impingement of the exiting L4 nerve roots bilaterally. L5-S1: Diffuse disc bulge with superimposed annular fissure. Bilateral facet arthrosis. No significant spinal canal stenosis. Moderate to severe right and mild to moderate left neural foraminal narrowing with mass effect on the right exiting L5 nerve roots. There is mild diffuse atrophy of the parasacral musculature. IMPRESSION: Multilevel lumbar spondylosis and epidural lipomatosis results in moderate spinal canal stenosis at L3-L4 and mild to moderate canal stenosis at L2-L3. Multilevel neural foraminal narrowing, worst and severe on the left at L2-L3, L3-L4 and bilaterally at L4-L5 and on the right at L5-S1 with mass effect on exiting nerve roots at these levels. XR HIP, LEFT 07/12/23 FINDINGS: No fracture. Alignment is anatomic. There is mild heel narrowing of the right acetabular joint space. The left acetabular joint space is well-maintained. The femoral heads are smooth. No acute fracture or dislocation is seen. There are iliofemoral atherosclerotic calcifications. No foreign body is noted. IMPRESSION: There is mild osteoarthritic change of the right hip, and no unusual degenerative change is seen of the left hip. No fracture or dislocation is seen. XR LUMBOSACRAL SPINE WITH OBLIQUES 07/25/23 CLINICAL INFORMATION: Spondylosis without myelopathy or radiculopathy COMPARISON: None available. FINDINGS: Slight rightward curvature of the lumbar spine. Extensive degenerative changes with hypertrophic change in the imaged lower thoracic spine. Extensive atherosclerotic aortoiliac calcifications. AP diameter of distal abdominal aorta of approximately 2.6 cm. Facet arthritis in the mid to lower lumbar spine. Advanced multilevel degenerative changes in the lumbar spine with abundant hypertrophic change and multilevel loss of disc space height. Grade 1 anterolisthesis of L5 on S1 persists on flexion and extension views. Degenerative changes in the bilateral sacroiliac joints. IMPRESSION: Severe multilevel degenerative changes in the lumbar spine. AP diameter of distal abdominal aorta of approximately 2.6 cm. Dedicated imaging of the abdominal aorta recommend a for further evaluation. Assessment & Plan Assessment & Plan (1) Lumbar degenerative disc disease: Code(s): M51.36 - Other intervertebral disc degeneration, lumbar region (2) Spondylolisthesis, lumbar region: Code(s): M43.16 - Spondylolisthesis, lumbar region (3) Lumbosacral spondylosis: Code(s): M47.817 - Spondylosis without myelopathy or radiculopathy, lumbosacral region (4) Low back pain: Code(s): M54.50 - Low back pain, unspecified (5) Obesity (BMI 30-39.9): Code(s): E66.9 - Obesity, unspecified Plan Schedule Diagnostic Bilateral L3-L4-L5 MBBs with local and fluoroscopy for axial low back pain. Expectations, risks and benefits were reviewed. Patient is aware he will be contacted to schedule this procedure. Patient is aware to hold Aspirin x1 week prior to injections. If patient has significant relief from the diagnostic blocks for his axial low back pain, will consider either therapeutic injections or RFA depending on his preference. Patient is not interested in Sprint PNS as he attends swimming sessions at [facility] Saturday through Saturday for his back and knee pain. Encouraged to start formal physical therapy and establish HEP. Encouraged adequate hydration, good posture and weight loss. All questions were answered and the patient is in agreement of plan. Follow-up after injections and sooner as needed. Coding Level of Care Code Est Pt Level 4 (75576) Diagnoses Lumbar degenerative disc disease M51.36 Spondylolisthesis, lumbar region M43.16 Lumbosacral spondylosis M47.817 Low back pain M54.50 Obesity (BMI 30-39.9) E66.9
[2023-11-21 09:22] VITALS: BP 183/79; PULSE 66; O2SAT 98; BMI 38.0
== END 2023-11-21 09:34 | disposition home or self-care (01) ==
PROVIDERS: PCP Internal Medicine; Visit Provider Nurse Practitioner Family
DX: M51.36 Other intervertebral disc degeneration, lumbar region (principal); M43.16 Spondylolisthesis, lumbar region; M47.817 Spondylosis without myelopathy or radiculopathy, lumbosacral region; M54.50 Low back pain, unspecified; E66.9 Obesity, unspecified
CPT/HCPCS: 99214

== ENCOUNTER → 2023-11-21 09:12 | Outpatient (BNVA) | payer MEDICARE, SELFPAY | PROVIDERS: PCP Internal Medicine; Visit Provider Nurse Practitioner Family | DX: M51.36 Other intervertebral disc degeneration, lumbar region (principal); M43.16 Spondylolisthesis, lumbar region; M47.817 Spondylosis without myelopathy or radiculopathy, lumbosacral region; M54.50 Low back pain, unspecified; E66.9 Obesity, unspecified; Z68.38 Body mass index [BMI] 38.0-38.9, adult | CPT/HCPCS: 99212 ==

== ENCOUNTER 2023-12-12 06:15 | Outpatient (REF) | payer MEDICARE, SELFPAY ==
--- NOTE | ~2023-12-12 | FL_ITS ---
INDICATION: Intraoperative fluoroscopy. FLUOROSCOPY: Fluoroscopy Time: 0.2 minutes Dose/air kerma: 4.73 mGy Images saved: 4 FINDINGS: Multiple intraoperative fluoroscopic images are submitted during surgical procedure of the spine. Correlation with operative report. Evaluation is limited secondary to fluoroscopic technique. IMPRESSION: Intra-operative fluoroscopic imaging provided by radiology during surgical procedure of the spine. Please refer to operative note for further information.
== END 2023-12-12 06:16 | disposition home or self-care (01) ==
LOC: CF 06:15
PROVIDERS: Visit Provider Internal Medicine
DX: M51.36 Other intervertebral disc degeneration, lumbar region (principal); M47.817 Spondylosis without myelopathy or radiculopathy, lumbosacral region
CPT/HCPCS: 64493; 64494; J2795; Q9967

== ENCOUNTER 2023-12-12 12:52 | Outpatient (AMB) | payer MEDICARE, SELFPAY ==
--- NOTE | 2023-12-12 13:08 | MHC.OFFVIS ---
Intake Vital Signs 12/12/23 13:09 12/12/23 14:18 Height 5 ft 10 in 5 ft 10 in Weight 265 lb 265 lb BMI 38.0 38.0 BP 110/68 126/82 Blood Pressure Location Lt brachial Lt brachial Position Sitting Sitting Respiration 16 16 Pulse 75 67 Pulse Source Pulse Oximeter Pulse Oximeter Pulse Oximetry (%) 95 95 Oxygen Delivery Method Room Air Room Air Comment pre-op Post-op Intake Visit Reasons: Clint Dx L3-L4-L5 MBB Allergies prednisone [PREDNISONE] Allergy (Severe, Verified 12/12/23 13:09) FACIAL SWELLING/FLUSHING adhesive tape Allergy (Intermediate, Verified 12/12/23 13:09) RASH acetaminophen [Percocet] Allergy (Unknown, Verified 12/12/23 13:09) Vomiting oxycodone [OXYCODONE] Adverse Reaction (Intermediate, Verified 12/12/23 13:09) ITCHING percocet Allergy (Unknown, Uncoded 02/21/22 13:49) rash prednisone Allergy (Unknown, Uncoded 02/21/22 13:49) rash HPI Clint Dx L3-L4-L5 MBB HPI Details Patient presents for scheduled procedure. Denies any recent cough, cold, infection, fever or other significant changes in medical history since last office visit. [facility] Medical History Spinal stenosis of lumbar region Sciatica of left side History of revision of total replacement of left knee joint Knee joint stiffness, bilateral De Quervain's tenosynovitis, left Instability of internal left knee prosthesis History of revision of total replacement of right knee joint Surgical History Status post carpal tunnel release of both wrists (~2017) S/p total knee replacement, bilateral Family History Mother No problems noted. Father No problems noted. Social History Patient Tobacco Use Status: Former Tobacco user Current occupational status: retired Current occupation: Right Handed Physical Exam Vital Signs: Last Vital Signs Pulse 75 12/12/23 13:09 Resp 16 12/12/23 13:09 BP 110/68 12/12/23 13:09 Pulse Ox 95 12/12/23 13:09 Oxygen Delivery Method Room Air 12/12/23 13:09 BMI result Body Mass Index 38.0 Office Procedures Lumbar/Sacral Facet Inj Details: Lumbar Medial Branch Block, Bilateral L3, L4 medial branches and L5 Dorsal Ramus (2 levels, 3 nerves) After obtaining written consent, pre-procedure blood pressure and pulse were recorded and are in the nursing record for review. The patient was placed in a prone position. The respective lumbosacral area was prepped with chloraprep and draped in sterile fashion. The skin over the target medial branch nerves was anesthetized with 0.5% lidocaine. A 22 gauge 3.5 inch needle was inserted into the target medial branch nerve under fluoroscopic guidance. No paresthesias were elicited with needle placement and aspiration was negative for blood and CSF. Next, 0.2cc of omnipaque 180 was injected to verify positioning. Next 0.5 ml 0.5% ropivicaine was injected (0.5cc total per level). The identical procedure was performed at the remaining levels. The skin was cleansed and a sterile bandage was applied. Following the procedure the patient's vital signs were stable. The patient tolerated the procedure well and no complications were encountered. Following the procedure the patient's vital signs were stable. The patient was discharged home in good condition with post-procedural instructions. Time Out: Immediately prior to the procedure, the following was verbally confirmed that there is a signed consent form and that the correct patient, planned procedure, site and side are consistent with documentation and that necessary equipment and/or blood products are available prior to the start of the case. Complications: none EBL: <5 cc 36070 - second level, with Fluoroscopy (Bilateral) Procedure code (CPT) selection complete Assessment & Plan Assessment & Plan (1) Lumbosacral spondylosis: Code(s): M47.817 - Spondylosis without myelopathy or radiculopathy, lumbosacral region Plan Patient is status post bilateral diagnostic L3, L4 medial branch and L5 dorsal ramus blocks. Patient tolerated procedure well and was discharged home in stable condition with discharge instructions. All questions were answered. We will follow-up via telephone or in clinic to assess response to therapy. A follow-up appointment was made during today's visit. Significant superficial sensitization component noted during the procedure. 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 Orders: Orders FL guidance in treatment room Today M51.36 - Other intervertebral disc degeneration, lumbar region Coding Level of Care Code Procedure Only Diagnoses Lumbosacral spondylosis M47.817 CPT Codes Facet Injection-Lumbar/Sacral - CPT: 32568 - second level, with Fluoroscopy ([id number])
[2023-12-12 13:09] VITALS: BP 110/68; PULSE 75; RESP 16; O2SAT 95; BMI 38.0
[2023-12-12 14:18] VITALS: BP 126/82; PULSE 67; RESP 16; O2SAT 95; BMI 38.0
== END 2023-12-12 14:14 | disposition home or self-care (01) ==
LOC: HO.PMCPRC 12:52
PROVIDERS: PCP Internal Medicine; Visit Provider Internal Medicine
DX: M47.817 Spondylosis without myelopathy or radiculopathy, lumbosacral region (principal)
CPT/HCPCS: 64493; 64494

== ENCOUNTER 2023-12-16 11:12 | Outpatient (AMB) | payer MEDICARE, SELFPAY ==
--- NOTE | 2023-12-16 11:14 | A.OFFVIS_ITS ---
Intake Vital Signs 12/16/23 11:18 Height 5 ft 10 in Weight 264 lb 3 oz BMI 37.9 BP 187/82 H Blood Pressure Location Rt brachial Position Sitting Pulse 75 Pulse Source Pulse Oximeter Pulse Oximetry (%) 95 Oxygen Delivery Method Room Air Intake Visit Reasons: s/p candelario Dx L3-L4-L5 MBB/lvm Intake Note: Pain today 0/10. 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 Accompanied by: Self / Same As Patient Allergies prednisone [PREDNISONE] Allergy (Severe, Verified 12/16/23 11:18) FACIAL SWELLING/FLUSHING adhesive tape Allergy (Intermediate, Verified 12/16/23 11:18) RASH acetaminophen [Percocet] Allergy (Unknown, Verified 12/16/23 11:18) Vomiting oxycodone [OXYCODONE] Adverse Reaction (Intermediate, Verified 12/16/23 11:18) ITCHING percocet Allergy (Unknown, Uncoded 02/21/22 13:49) rash prednisone Allergy (Unknown, Uncoded 02/21/22 13:49) rash HPI HPI Comments History of Present Illness Details Patient presents today to assess response to Bilateral Diagnostic L3-L4-L5 MBB injections on 12/12/[address] Haque. Patient reports ongoing 100% pain relief for 3 days and ongoing 70% pain relief since procedure. Patient reports since injections, he is able to walk and stand longer as well as notices significant improvement in his daily functioning and sleep. Patient reports injections were painful but he is very content with pain relief. Patient was remind that diagnostic injections do not provide sustained pain relief. We reviewed PNS trial, RFA and therapeutic injections as next steps for a longer pain management. Patient would like to discuss this with his family and will update our office on his next steps. Denies any recent cough, cold, infection, fever, any significant changes in her medical history, medications or recent hospitalizations. Past Procedures: 12/12/23: Bilateral Diagnostic L3-L4-L5 MBB-100% pain relief for 3 days PRIOR: Patient presents today after Neurosurgical evaluation last month at [facility]. Patient reports surgical intervention would provide him 50-50% chance therefore he declined back surgery. Patient reports axial low back pain that starts after walking for 10 min or prolonged standing. Patient denies radicular pain or pain with bending at this time.He also reports his left hip pain has been better. He rates pain 0-3/10 while sitting and 5-7/10 with walking or prolonged standing. He continues to regularly attend swimming sessions at [facility] and this partially alleviates his knee and back pain. Patient is interested to undergo diagnostic lumbar medial branch blocks for potential therapeutic injections or RFA procedure. Denies any recent cough, cold, infection, fever or other significant changes in medical history since last office visit. PRIOR: Patient is a pleasant 77 years old male presents today for initial evaluation of chronic low back pain. Denies any recent trauma, injury or falls. Patient reports axial low back pain and left hip pain wtih prolonged walking. Reports pain increases within 10 minutes of walking but no pain while sitting or standing. Patient is being seen by [facility] for left hip pain. Denies previous spine surgery or injections and is not interested in interventional treatments at this time. Patient denies previous physical therapy for back and core strengthening. He reports taking Aspirin and resting to alleviate his symptoms. Pain affects his daily activities, functioning, sleep, social activities, mood and quality of life. Patient denies previous physical therapy, chiropractic manipulation, massage, aqua therapy, acupuncture, TENS unit or home exercise program. Denies any fever, abdominal or groin pain, dizziness, shortness of breath, bladder or bowel incontinence or saddle anesthesia. Patient rates his pain at 4/10 with walking and 0/10 while sitting 0/10. 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 Father No problems noted. Social History Patient Tobacco Use Status: Former Tobacco user Current occupational status: retired Current occupation: Right Handed Review of Systems Const All systems reviewed & are unremarkable except as noted in HPI and below Physical Exam Vital Signs: Last Vital Signs Pulse 75 12/16/23 11:18 BP 187/82 H 12/16/23 11:18 Pulse Ox 95 12/16/23 11:18 Oxygen Delivery Method Room Air 12/16/23 11:18 General: Appears afebrile. Alert and oriented. Mood and affect appropriate. Follows and participates in conversation appropriately. Respiratory effort is unlabored. No cough. Able to transition from sit to stand unassisted. Ambulates with bilaterally normal heel strike and toe off. Results Reviewed Results Reviewed: MR LUMBAR SPINE WITHOUT CONTRAST 09/17/23 CLINICAL INFORMATION: Spinal stenosis, lumbar region without neurogenic claudication. COMPARISON: Lumbar radiographs on 07/25/2023 TECHNIQUE: MRI of the lumbar spine was obtained using routine sequences without contrast. FINDINGS: Grade 1 anterolisthesis at L4-L5 and to a lesser extent L5-S1. Mild retrolisthesis at T12-L1, L1-L2, L2-L3, and to a lesser extent L3-L4. No acute bone marrow signal. The vertebral body heights are preserved. Multilevel disc desiccation and disc height loss. Multilevel endplate osteophytosis. The visualized spinal cord is normal in caliber. No abnormal cord signal. The conus medullaris terminates at L1. T12-L1: Small disc bulge and prominent dorsal epidural fat. No significant spinal canal stenosis. Mild right greater than left neural foraminal narrowing. L1-L2: Diffuse disc bulge extending into the right neural foramen. Prominent dorsal epidural fat and bilateral facet arthrosis. Mild spinal canal stenosis. Mild to moderate left and mild right neural foraminal narrowing. L2-L3: Diffuse disc bulge, prominent dorsal epidural fat, ligamentum flavum hypertrophy, and bilateral facet arthrosis. Mild to moderate spinal canal stenosis. Moderate right and severe left neural foraminal narrowing with the disc abutting the exiting L2 nerve roots bilaterally. L3-L4: Diffuse disc bulge with superimposed annular fissure. Prominent dorsal epidural fat, ligamentum flavum hypertrophy, and bilateral facet arthrosis. Moderate spinal canal stenosis. Severe left and moderate right neural foraminal narrowing with mass effect on the left exiting L3 nerve roots. The disc also abuts the exiting nerve roots on the right. L4-L5: Diffuse disc bulge, ligamentum flavum hypertrophy, and bilateral facet arthrosis. Mild spinal canal stenosis. Severe bilateral neural foraminal narrowing with impingement of the exiting L4 nerve roots bilaterally. L5-S1: Diffuse disc bulge with superimposed annular fissure. Bilateral facet arthrosis. No significant spinal canal stenosis. Moderate to severe right and mild to moderate left neural foraminal narrowing with mass effect on the right exiting L5 nerve roots. There is mild diffuse atrophy of the parasacral musculature. IMPRESSION: Multilevel lumbar spondylosis and epidural lipomatosis results in moderate spinal canal stenosis at L3-L4 and mild to moderate canal stenosis at L2-L3. Multilevel neural foraminal narrowing, worst and severe on the left at L2-L3, L3-L4 and bilaterally at L4-L5 and on the right at L5-S1 with mass effect on exiting nerve roots at these levels. XR HIP, LEFT 07/12/23 FINDINGS: No fracture. Alignment is anatomic. There is mild heel narrowing of the right acetabular joint space. The left acetabular joint space is well-maintained. The femoral heads are smooth. No acute fracture or dislocation is seen. There are iliofemoral atherosclerotic calcifications. No foreign body is noted. IMPRESSION: There is mild osteoarthritic change of the right hip, and no unusual degenerative change is seen of the left hip. No fracture or dislocation is seen. XR LUMBOSACRAL SPINE WITH OBLIQUES 07/25/23 CLINICAL INFORMATION: Spondylosis without myelopathy or radiculopathy COMPARISON: None available. FINDINGS: Slight rightward curvature of the lumbar spine. Extensive degenerative changes with hypertrophic change in the imaged lower thoracic spine. Extensive atherosclerotic aortoiliac calcifications. AP diameter of distal abdominal aorta of approximately 2.6 cm. Facet arthritis in the mid to lower lumbar spine. Advanced multilevel degenerative changes in the lumbar spine with abundant hypertrophic change and multilevel loss of disc space height. Grade 1 anterolisthesis of L5 on S1 persists on flexion and extension views. Degenerative changes in the bilateral sacroiliac joints. IMPRESSION: Severe multilevel degenerative changes in the lumbar spine. AP diameter of distal abdominal aorta of approximately 2.6 cm. Dedicated imaging of the abdominal aorta recommend a for further evaluation. Assessment & Plan Assessment & Plan (1) Lumbosacral spondylosis: Code(s): M47.817 - Spondylosis without myelopathy or radiculopathy, lumbosacral region (2) Lumbar degenerative disc disease: Code(s): M51.36 - Other intervertebral disc degeneration, lumbar region (3) Low back pain: Code(s): M54.50 - Low back pain, unspecified Plan Patient is status post bilateral diagnostic L3, L4 medial branch and L5 dorsal ramus blocks on 12/12/23 with 100% pain relief for 3 days and ongoing 70% pain relief. Patient was reminded that diagnostic injections do not provide sustained pain relief. We reviewed PNS trial, RFA and therapeutic injections as next steps for a longer pain management. Patient would like to discuss this with his family and will update our office on his next steps. Significant superficial sensitization component noted during the procedure per Dr. Haque. We discussed [employer] depressant/neuropathic medication treatment trial in combination with interventional therapy in the future. Gabapentin 100 mg at bedtime trial was offered, patient declined it at this time. He reports 0/10 pain today and states since injections on on 12/12/23, his back pain has been minimal 1-3/10 the most. Coding Level of Care Code Est Pt Level 3 (54645) Diagnoses Lumbosacral spondylosis M47.817 Lumbar degenerative disc disease M51.36 Low back pain M54.50
[2023-12-16 11:18] VITALS: BP 187/82; PULSE 75; O2SAT 95; BMI 37.9
== END 2023-12-16 11:32 | disposition home or self-care (01) ==
PROVIDERS: PCP Internal Medicine; Visit Provider Nurse Practitioner Family
DX: M47.817 Spondylosis without myelopathy or radiculopathy, lumbosacral region (principal); M51.36 Other intervertebral disc degeneration, lumbar region; M54.50 Low back pain, unspecified
CPT/HCPCS: 99213

== ENCOUNTER → 2023-12-16 11:12 | Outpatient (BNVA) | payer MEDICARE, SELFPAY | PROVIDERS: PCP Internal Medicine; Visit Provider Nurse Practitioner Family | DX: M47.817 Spondylosis without myelopathy or radiculopathy, lumbosacral region (principal); M51.36 Other intervertebral disc degeneration, lumbar region; M54.50 Low back pain, unspecified; Z98.890 Other specified postprocedural states | CPT/HCPCS: 99212 ==

== ENCOUNTER 2024-04-09 13:38 | Outpatient (AMB) | payer MEDICARE, SELFPAY ==
--- NOTE | 2024-04-09 13:39 | MHC.OFFVIS ---
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 Accompanied by: Self / Same As Patient Allergies prednisone [PREDNISONE] Allergy (Severe, Verified 04/09/24 13:49) FACIAL SWELLING/FLUSHING adhesive tape Allergy (Intermediate, Verified 04/09/24 13:49) RASH acetaminophen [Percocet] Allergy (Unknown, Verified 04/09/24 13:49) Vomiting oxycodone [OXYCODONE] Adverse Reaction (Intermediate, Verified 04/09/24 13:49) ITCHING percocet Allergy (Unknown, Uncoded 02/21/22 13:49) rash prednisone Allergy (Unknown, Uncoded 02/21/22 13:49) rash HPI Comments Details: Patient presents today to discuss longer term pain relief treatments for axial low back pain. He had great pain relief with Bilateral Diagnostic L3-L4-L5 MBB injections on 12/12/[address] Haque which provided him 100% pain relief for 3 days and significant improvement in his daily functioning and sleep. We again reviewed PNS trial, RFA and therapeutic injections as next steps for a longer pain management. Sprint PNS trial is not suitable for him as he does regular swimming. We reviewed therapeutic injections and lumbar medial branch RFA today. Patient would like to discuss this with his family and will update our office on his next steps. Denies any recent cough, cold, infection, fever, any significant changes in her medical history, medications or recent hospitalizations. Past Procedures: 12/12/23: Bilateral Diagnostic L3-L4-L5 MBB-100% pain relief for 3 days PRIOR: Patient presents today after Neurosurgical evaluation last month at [facility]. Patient reports surgical intervention would provide him 50-50% chance therefore he declined back surgery. Patient reports axial low back pain that starts after walking for 10 min or prolonged standing. Patient denies radicular pain or pain with bending at this time.He also reports his left hip pain has been better. He rates pain 0-3/10 while sitting and 5-7/10 with walking or prolonged standing. He continues to regularly attend swimming sessions at [facility] and this partially alleviates his knee and back pain. Patient is interested to undergo diagnostic lumbar medial branch blocks for potential therapeutic injections or RFA procedure. Denies any recent cough, cold, infection, fever or other significant changes in medical history since last office visit. PRIOR: Patient is a pleasant 77 years old male presents today for initial evaluation of chronic low back pain. Denies any recent trauma, injury or falls. Patient reports axial low back pain and left hip pain wtih prolonged walking. Reports pain increases within 10 minutes of walking but no pain while sitting or standing. Patient is being seen by [facility] for left hip pain. Denies previous spine surgery or injections and is not interested in interventional treatments at this time. Patient denies previous physical therapy for back and core strengthening. He reports taking Aspirin and resting to alleviate his symptoms. Pain affects his daily activities, functioning, sleep, social activities, mood and quality of life. Patient denies previous physical therapy, chiropractic manipulation, massage, aqua therapy, acupuncture, TENS unit or home exercise program. Denies any fever, abdominal or groin pain, dizziness, shortness of breath, bladder or bowel incontinence or saddle anesthesia. Patient rates his pain at 4/10 with walking and 0/10 while sitting 0/10. 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 Father No problems noted. Social History Patient Tobacco Use Status: Former Tobacco user Current occupational status: retired Current occupation: Right Handed Review of Systems Const All systems reviewed & are unremarkable except as noted in HPI and below Physical Exam Vital Signs: Last Vital Signs Pulse 67 04/09/24 13:48 BP 185/79 H 04/09/24 13:48 Pulse Ox 98 04/09/24 13:48 Oxygen Delivery Method Room Air 04/09/24 13:48 BMI result Body Mass Index 38.0 General: Appears afebrile. Alert and oriented. Mood and affect appropriate. Follows and participates in conversation appropriately. Respiratory effort is unlabored. No cough. Able to transition from sit to stand unassisted. Ambulates with bilaterally normal heel strike and toe off but feels unsteady on the left. Back/Spine/Pelvis Cervical Spine: cervical ROM normal and No Cervical spine tenderness Thoracic/Lumbar Spine: thoracic and lumbar spine normal to inspection, No Thoracic/lumbar spine scar(s), Lasegue's sign negative, straight leg raise negative bilaterally, paraspinal muscle tenderness on the left greater than right, thoraco-lumbar ROM limited, No thoracic spinal tenderness and lumbar spinal tenderness at L4 and at L5 Sacroiliac joints: bilaterally (+Alvarado's) tender to palpation Results Reviewed Results Reviewed: MR LUMBAR SPINE WITHOUT CONTRAST 09/17/23 CLINICAL INFORMATION: Spinal stenosis, lumbar region without neurogenic claudication. COMPARISON: Lumbar radiographs on 07/25/2023 TECHNIQUE: MRI of the lumbar spine was obtained using routine sequences without contrast. FINDINGS: Grade 1 anterolisthesis at L4-L5 and to a lesser extent L5-S1. Mild retrolisthesis at T12-L1, L1-L2, L2-L3, and to a lesser extent L3-L4. No acute bone marrow signal. The vertebral body heights are preserved. Multilevel disc desiccation and disc height loss. Multilevel endplate osteophytosis. The visualized spinal cord is normal in caliber. No abnormal cord signal. The conus medullaris terminates at L1. T12-L1: Small disc bulge and prominent dorsal epidural fat. No significant spinal canal stenosis. Mild right greater than left neural foraminal narrowing. L1-L2: Diffuse disc bulge extending into the right neural foramen. Prominent dorsal epidural fat and bilateral facet arthrosis. Mild spinal canal stenosis. Mild to moderate left and mild right neural foraminal narrowing. L2-L3: Diffuse disc bulge, prominent dorsal epidural fat, ligamentum flavum hypertrophy, and bilateral facet arthrosis. Mild to moderate spinal canal stenosis. Moderate right and severe left neural foraminal narrowing with the disc abutting the exiting L2 nerve roots bilaterally. L3-L4: Diffuse disc bulge with superimposed annular fissure. Prominent dorsal epidural fat, ligamentum flavum hypertrophy, and bilateral facet arthrosis. Moderate spinal canal stenosis. Severe left and moderate right neural foraminal narrowing with mass effect on the left exiting L3 nerve roots. The disc also abuts the exiting nerve roots on the right. L4-L5: Diffuse disc bulge, ligamentum flavum hypertrophy, and bilateral facet arthrosis. Mild spinal canal stenosis. Severe bilateral neural foraminal narrowing with impingement of the exiting L4 nerve roots bilaterally. L5-S1: Diffuse disc bulge with superimposed annular fissure. Bilateral facet arthrosis. No significant spinal canal stenosis. Moderate to severe right and mild to moderate left neural foraminal narrowing with mass effect on the right exiting L5 nerve roots. There is mild diffuse atrophy of the parasacral musculature. IMPRESSION: Multilevel lumbar spondylosis and epidural lipomatosis results in moderate spinal canal stenosis at L3-L4 and mild to moderate canal stenosis at L2-L3. Multilevel neural foraminal narrowing, worst and severe on the left at L2-L3, L3-L4 and bilaterally at L4-L5 and on the right at L5-S1 with mass effect on exiting nerve roots at these levels. XR HIP, LEFT 07/12/23 FINDINGS: No fracture. Alignment is anatomic. There is mild heel narrowing of the right acetabular joint space. The left acetabular joint space is well-maintained. The femoral heads are smooth. No acute fracture or dislocation is seen. There are iliofemoral atherosclerotic calcifications. No foreign body is noted. IMPRESSION: There is mild osteoarthritic change of the right hip, and no unusual degenerative change is seen of the left hip. No fracture or dislocation is seen. XR LUMBOSACRAL SPINE WITH OBLIQUES 07/25/23 CLINICAL INFORMATION: Spondylosis without myelopathy or radiculopathy COMPARISON: None available. FINDINGS: Slight rightward curvature of the lumbar spine. Extensive degenerative changes with hypertrophic change in the imaged lower thoracic spine. Extensive atherosclerotic aortoiliac calcifications. AP diameter of distal abdominal aorta of approximately 2.6 cm. Facet arthritis in the mid to lower lumbar spine. Advanced multilevel degenerative changes in the lumbar spine with abundant hypertrophic change and multilevel loss of disc space height. Grade 1 anterolisthesis of L5 on S1 persists on flexion and extension views. Degenerative changes in the bilateral sacroiliac joints. IMPRESSION: Severe multilevel degenerative changes in the lumbar spine. AP diameter of distal abdominal aorta of approximately 2.6 cm. Dedicated imaging of the abdominal aorta recommend a for further evaluation. Assessment & Plan Assessment & Plan (1) Lumbosacral spondylosis: Code(s): M47.817 - Spondylosis without myelopathy or radiculopathy, lumbosacral region Category: Medical (2) Low back pain: Code(s): M54.50 - Low back pain, unspecified Category: Medical (3) Lumbar degenerative disc disease: Code(s): M51.36 - Other intervertebral disc degeneration, lumbar region Category: Medical Plan Patient is status post bilateral diagnostic L3, L4 medial branch and L5 dorsal ramus blocks on 12/12/23 with 100% pain relief for 3 days and ongoing 70% pain relief. We reviewed PNS trial, RFA and therapeutic injections as next steps for a longer pain management. Patient declined Sprint PNS trial due to regular swimming. Patient would like to discuss RFA procedure with his family and will update our office on his next steps. Script provided for Celebrex 100 mg BID prn. Side effects and precautions discussed with patient. All questions and concerns have been answered and patient agreed with the plan. Follow up as needed. Medications: New celecoxib (Celebrex) Take it with food and full glass of water. Avoid Ibuprofen while taking this. 100 mg PO BID 30 days PRN 60 caps 0RF pain M47.817 - Spondylosis without myelopathy or radiculopathy, lumbosacral region, M51.36 - Other intervertebral disc degeneration, lumbar region, M54.50 - Low back pain, unspecified, M54.51 - Vertebrogenic low back pain Coding Level of Care Code Est Pt Level 3 (21332) Diagnoses Lumbosacral spondylosis M47.817 Low back pain M54.50 Lumbar degenerative disc disease M51.36
[2024-04-09 13:48] VITALS: BP 185/79; PULSE 67; O2SAT 98; BMI 38.0
== END 2024-04-09 14:11 | disposition home or self-care (01) ==
PROVIDERS: PCP Internal Medicine; Visit Provider Nurse Practitioner Family
DX: M47.817 Spondylosis without myelopathy or radiculopathy, lumbosacral region (principal); M54.50 Low back pain, unspecified; M51.36 Other intervertebral disc degeneration, lumbar region
CPT/HCPCS: 99213

== ENCOUNTER → 2024-04-09 13:38 | Outpatient (BNVA) | payer MEDICARE, SELFPAY | PROVIDERS: PCP Internal Medicine; Visit Provider Nurse Practitioner Family | DX: M47.817 Spondylosis without myelopathy or radiculopathy, lumbosacral region (principal); M54.50 Low back pain, unspecified; M51.36 Other intervertebral disc degeneration, lumbar region | CPT/HCPCS: 99212 ==

== ENCOUNTER 2024-11-06 07:00 | Outpatient (RCR) | payer MEDICARE, SELFPAY | END 2024-12-04 13:22 | disposition home or self-care (01) | LOC: HO.PTCHIC 07:00 | PROVIDERS: PCP Internal Medicine; Visit Provider Neurological Surgery | DX: M47.816 Spondylosis without myelopathy or radiculopathy, lumbar region (principal) | CPT/HCPCS: 97110; 97162 ==